=== PATIENT | female | born 1970 | race Caucasian/White ===

== ENCOUNTER 2023-07-12 13:53 | Emergency (ER) | payer OTHER ==
[2023-07-12 14:01] VITALS: TEMP 98.9; BMI 23.6
[2023-07-12] MEDS ORDERED: SODIUM CHLORIDE 0.9% 500 ML INFUS.BAG IV ONE (15:43)
[2023-07-12] MEDS ORDERED: MECLIZINE HCL 12.5 MG TABLET PO ONE (15:44)
[2023-07-12] MEDS ORDERED: MECLIZINE HCL 12.5 MG TABLET ONE ×2 (16:14→16:54)
[2023-07-12 16:46] LABS: BASO % 1.3 % (0-2.0); EOS % 2.6 % (0-4.5); HEMOGLOBIN 12.9 GM/dL (10.7-15.3); LYMPH % 45.4 % (8-40); MCH 31.1 pg (25.7-33.7); MCHC 34.8 g/dl (32.0-36.0); MEAN CELL VOLUME 89.4 fl (80-96); MONO % 8.1 % (3.8-10.2); NEUT % 42.6 % (42.8-82.8); PLATELET COUNT 160 10^3/uL (134-434); RBC 4.13 M/mm3 (3.60-5.2); RDW 13.1 % (11.6-15.6); WHITE BLOOD COUNT 3.1 K/mm3 (4.0-10.0)
[2023-07-12 17:09] LABS: POTASSIUM 4.4 mmol/L (3.5-5.1)
[2023-07-12 17:11] LABS: CALCIUM 8.9 mg/dL (8.5-10.1)
[2023-07-12 17:12] LABS: ALBUMIN 3.4 g/dl (3.4-5.0); BLOOD UREA NITROGEN 8.2 mg/dL (7-18)
[2023-07-12 17:15] LABS: CREATININE 0.7 mg/dL (0.55-1.3)
[2023-07-12 17:16] LABS: TOT PROT 7.3 g/dl (6.4-8.2)
[2023-07-12 17:17] LABS: BILIRUBIN,TOTAL 0.4 mg/dL (0.2-1)
[2023-07-12 19:35] VITALS: BP 155/88; PULSE 70; RESP 19
== END 2023-07-12 19:37 | disposition home or self-care (01) ==
LOC: JER 13:53
DX: R42 Dizziness and giddiness (principal); R11.0 Nausea; Z20.822 Contact with and (suspected) exposure to COVID-19
CPT/HCPCS: 0241U-QW; 36415; 70450-TC; 80053; 85025; 99284-25